=== PATIENT | female | born 2000 | race Two or more races ===

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

== ENCOUNTER 2018-01-28 12:36 | Emergency (ER) | payer MEDICAID ==
[~2018-01-28] VITALS: Ht 162.6 cm; Wt 49.9 kg
[2018-01-28 15:26] VITALS: BP 123/62
[2018-01-28 16:03] LABS: Urine Bacteria NONE SEEN /hpf (None Seen); Urine Blood 3+ /uL (Negative); Urine Mucus FEW (None Seen); Urine Specific Gravity 1.025 (1.001-1.035); Urine WBC 1 /hpf (0 - 5)
[2018-01-28] MEDS ORDERED: ACETAMINOPHEN 500 MG TAB PO ONE (16:15)
[2018-01-28] MEDS ORDERED: IBUPROFEN 600 MG TAB PO ONE (16:15)
== END 2018-01-28 17:19 | disposition home or self-care (01) ==
LOC: ER 12:39
DX: O46.8X1 Other antepartum hemorrhage, first trimester (principal); Z3A.01 Less than 8 weeks gestation of pregnancy
CPT/HCPCS: 36415; 76801; 76817; 81001; 84702

== ENCOUNTER 2018-01-30 14:26 | Emergency (ER) | payer MEDICAID ==
[~2018-01-30] VITALS: Ht 162.6 cm; Wt 49.9 kg
[2018-01-30 14:56] VITALS: BP 113/62
== END 2018-01-30 20:59 | disposition left against medical advice (07) ==
LOC: ER 14:36
DX: O46.8X9 Other antepartum hemorrhage, unspecified trimester (principal); Z53.21 Procedure and treatment not carried out due to patient leaving prior to being seen by health care provider

== ENCOUNTER → 2023-10-02 | Outpatient (CLI) | payer BC ==
[2023-10-02 12:29] LABS: Basophils # (auto) 0 10 ^3/uL (0-0.2); Basophils % (auto) 0.4 % (0.0-2.0); Eosinophils # (auto) 0.1 10 ^3/uL (0-0.8); Eosinophils % (auto) 0.9 % (0.0-7.0); Hemoglobin 13.4 g/dL (12.2-16.2); Lymphocytes # (auto) 1.5 10 ^3/uL (0.4-5.4); Lymphocytes % (auto) 17.3 % (10.0-50.0); Mean Corpuscular Hgb Conc. 33.6 g/dL (32.0-36.0); Mean Corpuscular Volume 86.3 fL (80.0-100.0); Monocytes # (auto) 0.8 10 ^3/uL (0-1.3); Neutrophils # (auto) 6.1 10 ^3/uL (1.6-8.6); Neutrophils % (auto) 72.4 % (37.0-80.0); Red Blood Cells 4.64 10^6/uL (4.0-5.20); Red Cell Distribution Width 13.6 % (11.8-14.3); White Blood Cell 8.4 10^3/uL (4.4-10.8)
[2023-10-02 13:02] LABS: Alanine Aminotransferase 15 U/L (7-40); Albumin 4.8 g/dL (3.2-4.8); Alkaline Phosphatase 47 U/L (46-116); Anion Gap 6 (5-15); Aspartate Aminotransferase 14 U/L (13-40); BUN/Creatinine Ratio 13.1 (10.0-20.0); Bilirubin, Total 0.6 mg/dL (0.2-1.0); Blood Urea Nitrogen 8 mg/dL (9-23); Calcium 10.2 mg/dL (8.5-10.1); Carbon Dioxide 23 mmol/L (20-30); Chloride 106 mmol/L (98-107); Cholesterol 153 mg/dL (< 200); Glucose 83 mg/dL (74-106); HDL Cholesterol 56 mg/dL (40-59); LDL Cholesterol 87 mg/dL (< 100); Potassium 3.9 mmol/L (3.5-5.1); Sodium 135 mmol/L (136-145); Total Protein 7.7 g/dL (5.7-8.2); Triglycerides 78 mg/dL (< 150)
[2023-10-02 13:03] LABS: Thyroid Stimulating Hormone 0.48 uIU/mL (0.55-4.78)
[2023-10-02 13:08] LABS: Amphetamine Screen, Urine Neg (NEGATIVE); Barbiturate Scree,Urine Neg (NEGATIVE); Benzodiazephine Screen, Urine Neg (NEGATIVE); Cannabinoid Screen, Urine Neg (NEGATIVE); Cocaine Screen, Urine Neg (NEGATIVE); Opiate Scree,Urine Neg (NEGATIVE); Phencyclidine Screen, Urine Neg (NEGATIVE)
[2023-10-02 13:10] LABS: Beta HCG, Quantitative 93055.5 mIU/mL (1.5-4.2)
[2023-10-03 07:08] LABS: Varicella Zoster IgG Antibody 345 index (Immune >165)
[2023-10-03 08:17] LABS: RPR Non Reactive (Non Reactive)
[2023-10-03 21:06] LABS: Chlamydia Trachomatis, NAA Negative (Negative); Neisseria gonorrhoeae, NAA Negative (Negative)
[2023-10-04 17:06] LABS: QuantiFERON-TB Gold Plus Negative (Negative)
== END | disposition home or self-care (01) ==
LOC: LAB 11:31
PROVIDERS: ATTEND Obstetrics & Gynecology
DX: Z34.80 Encounter for supervision of other normal pregnancy, unspecified trimester (principal); Z31.430 Encounter of female for testing for genetic disease carrier status for procreative management; N39.0 Urinary tract infection, site not specified; Z3A.00 Weeks of gestation of pregnancy not specified
CPT/HCPCS: 36415; 80053; 80061; 80307; 83036; 84439; 84443; 84702; 85025; 86592; 86703; 86762; 86787; 86850; 86900; 86901; 87086

== ENCOUNTER 2024-05-16 21:16 | Observation (INO) | payer BC ==
[~2024-05-16] VITALS: Ht 160 cm; Wt 70.3 kg
--- NOTE | 2024-05-17 07:13 | DVHDS2 ---
Physician Discharge Progress N Final Diagnosis: early labor Operations or Procedures: Operations or Procedures S: 24yo IUP@39.4wks presents to OB triage with c/o UCs q3 minutes, Denies LOF/VB/DEVINE/vision changes/RUQ pain. Endorses +FM. PNC with Dr. Stone, uncomplicated. Pt reports getting membrane sweep with OB today and was 2-3cm dilated. EFW in office 8lbs 4oz. O: VSS UA wnl NST reactive TOCO: q5-6 min SVE by RN: initially 3.5/50/-2, intact, vertex Pt ambulated for 1 hr then SVE recheck by RN was 3.5/60-70/-2. Pt wanted to ambulate for 1 more hour and SVE recheck unchanged. A: 24yo IUP@39.4wks Early labor P: D/C home [facility]/Labor precautions reviewed Do miles circuit, eat, shower, and rest at home. Condition on Discharge: Stable Disposition: Home Discharge Instructions: Diet: Regular Activity: No Restrictions, As Tolerated Medications: see med list Follow Up Care: Specialist: f/u with Dr. Stone Discharge Statement: "Patient was advised to return to the ER or call 911 if any headaches, dizziness, shortness of breath, chest pain, abdominal pain, bleeding, fevers, or worsening of medical condition. Patient was counseled about treatment plan, medications, possible side effects, patientverbalized understanding. All questions were answered to the best of my ability. This discharge took greater then 30 minutes in planning, reviewing documentation, counseling the patient, and discussing with other team members." CAROLYNN RESENDIZ CNM May 17, 2024 07:13
[2024-05-17] MEDS ORDERED: PREN-96 PO (14:03)
[2024-05-17] MEDS ORDERED: DOCU-94 PO ×2 (16:36)
[2024-05-17] MEDS ORDERED: IBU600T PO ×2 (16:36)
[2024-05-18] MEDS ORDERED: PREN-96 PO ×2 (00:30)
== END 2024-05-17 00:23 | disposition home or self-care (01) ==
LOC: LDRP 21:16
PROVIDERS: ADMIT Obstetrics & Gynecology; ATTEND Obstetrics & Gynecology
DX: O60.03 Preterm labor without delivery, third trimester (principal); Z3A.39 39 weeks gestation of pregnancy; Z79.899 Other long term (current) drug therapy
CPT/HCPCS: 59025; 81002; 82948; G0378

== ENCOUNTER 2024-05-17 02:18 | Inpatient (IN) | payer BC ==
[~2024-05-17] VITALS: Ht 160 cm; Wt 70.3 kg
[2024-05-17] MEDS ORDERED: LIDOCAINE 2%HCL (LOCAL ANESTH.) INJ 20ML MDV IJ PRN (02:45)
[2024-05-17] MEDS ORDERED: TERBUTALINE SULFATE 1 MG/ML 1ML VIAL SC PRN (02:45)
[2024-05-17 03:06] LABS: Basophils # (auto) 0 10 ^3/uL (0-0.2); Basophils % (auto) 0.3 % (0.0-2.0); Eosinophils # (auto) 0 10 ^3/uL (0-0.8); Eosinophils % (auto) 0.1 % (0.0-7.0); Hematocrit 40.8 % (36.0-46.0); Hemoglobin 13.7 g/dL (12.2-16.2); Lymphocytes # (auto) 1.1 10 ^3/uL (0.4-5.4); Lymphocytes % (auto) 7.7 % (10.0-50.0); Mean Corpuscular Hgb Conc. 33.5 g/dL (32.0-36.0); Mean Corpuscular Volume 89.5 fL (80.0-100.0); Monocytes # (auto) 0.8 10 ^3/uL (0-1.3); Monocytes % (auto) 5.5 % (0.0-12.0); Neutrophils # (auto) 12.2 10 ^3/uL (1.6-8.6); Neutrophils % (auto) 86.4 % (37.0-80.0); Platelet Count (auto) 166 10^3/uL (140-450); Red Blood Cells 4.55 10^6/uL (4.0-5.20); Red Cell Distribution Width 15.2 % (11.8-14.3); White Blood Cell 14.2 10^3/uL (4.4-10.8)
[2024-05-17 03:23] LABS: INR 0.95 (0.9-1.15); Partial Thromboplastin Time 30.7 SEC (24.5-34.5); Prothrombin Time 10.1 sec (9.3-11.8)
[2024-05-17 03:24] LABS: Alanine Aminotransferase 22 U/L (7-40); Albumin 4.1 g/dL (3.2-4.8); Alkaline Phosphatase 169 U/L (46-116); Anion Gap 8 (5-15); Aspartate Aminotransferase 23 U/L (13-40); BUN/Creatinine Ratio 14.1 (10.0-20.0); Bilirubin, Total 0.4 mg/dL (0.2-1.0); Blood Urea Nitrogen 9 mg/dL (9-23); Carbon Dioxide 20 mmol/L (20-31); Chloride 107 mmol/L (98-107); Glucose 114 mg/dL (74-106); Potassium 3.8 mmol/L (3.5-5.1); Sodium 135 mmol/L (136-145); Total Protein 6.9 g/dL (5.7-8.2)
[2024-05-17 04:03] LABS: Amphetamine Screen, Urine Neg (NEGATIVE); Barbiturate Scree,Urine Neg (NEGATIVE); Benzodiazephine Screen, Urine Neg (NEGATIVE); Cannabinoid Screen, Urine Neg (NEGATIVE); Cocaine Screen, Urine Neg (NEGATIVE); Phencyclidine Screen, Urine Neg (NEGATIVE)
[2024-05-17] MEDS ORDERED: ONDANSETRON HCL 4 MG/2 ML VIAL IV PRN (04:15)
[2024-05-17] MEDS: DERMOPLAST 60ML BOTTLE TOP PRN (04:18)
[2024-05-17] MEDS: PHISODERM TOP SOLN 240ML BTL TOP PRN (04:18)
[2024-05-17] MEDS: WITCH HAZEL-GLYCERIN PAD TOP PRN (04:18)
[2024-05-17] MEDS: NALBUPHINE HCL 10 MG/1ml INJECTION IV PRN (04:19)
[2024-05-17 04:20] LABS: Opiate Scree,Urine Neg (NEGATIVE)
[2024-05-17 05:02] LABS: Urine Blood 1+ /uL (Negative); Urine Clarity Clear (Clear); Urine Color Light-Yellow (Yellow); Urine Protein, UAD Negative (Negative); Urine Specific Gravity 1.014 (1.001-1.035); Urine Squamous Epithelial Cell FEW /hpf (<5); Urine Urobilinogen Normal (Negative); Urine WBC 1 /hpf (0 - 5); Urine pH 6.5 (5.0-9.0)
[2024-05-17] MEDS: LACTATED RINGER'S 1,000 ML IV SCH (06:23)
--- NOTE | 2024-05-17 07:13 | DVHHP2 ---
OB CC & HPI Date Date of Admission: May 17, 2024 Patient Identification: : 3 Para: 1 EDC: May 19, 2024 EGA: 39.5wks Chief Complaints: Reason for admission: other (labor) History of Present Complaints 24yo IUP@39.5wks presents to OB triage with c/o UCs q2-3 minutes, Denies LOF/VB/DEVINE/vision changes/RUQ pain. Endorses +FM. PNC with Dr. Stone, uncomplicated. Pt reports getting membrane sweep with OB on 05/16/24 and was 2-3cm dilated. GTT wnl, dating based on LMP c/w 6wk sono, GBS negative. OB hx: #1: SAB at 5wks #2: in 2019, 7lbs 7oz, uncomplicated Past Medical History Cardiac: No pertinent Hx Pulmonary: No pertinent Hx Central Nervous System: No pertinent Hx GI: No pertinent Hx Hemotology/Oncology: No pertinent Hx Hepatobiliary: No pertinent Hx Psychiatric: No pertinent Hx Musculoskeletal: No pertinent Hx Rheumotologic: No pertinent Hx Infectious Disease: No peritnent Hx ENT: No pertinent Hx Renal/: No pertinent Hx Endocrine: No pertinent Hx Dermatology: No pertinent Hx Past Surgical History: No pertinent Hx OB History OB History Care: Good Care Ultrasounds: Normal mid trimester US Obstetrical Complications: None Medical Complications: None Allergies: Coded Allergies: NO KNOWN ALLERGIES (Unverified , 11/28/16) Allergies NKDA Home Meds Reported Medications Vit W/ Ferrous Fumara ( One Daily) Daily Tab, 1 TAB PO DAILY, #90 TAB 3 Refills 05/17/24 Current Medications Current Medications Medications (Trade) Dose Ordered Sig/Hugo Route PRN Reason Start Time Stop Time Status Last Admin Lactated Ringer's 1,000 ml @ 125 mls/hr Q8H IV 05/17/24 02:45 05/17/24 06:23 Nalbuphine HCl (Nubain) 10 mg Q4HP PRN IV MODERATE PAIN (4-6 PAIN SCALE) 05/17/24 02:45 05/17/24 04:19 Witch Corinna (Tucks) 1 pad PRN PRN TOP PERINEAL AREA DISCOMFORT 05/17/24 02:45 05/17/24 04:18 Sodium Lauryl Sulfate (Phisoderm) 240 ml PRN PRN TOP PERINEAL AREA DISCOMFORT 05/17/24 02:45 05/17/24 04:18 Benzocaine (Dermoplast) 1 applic PRN PRN TOP PERINEAL AREA DISCOMFORT 05/17/24 02:45 05/17/24 04:18 Lidocaine HCl (Xylocaine) 40 ml ONCE PRN IJ PERINEAL AREA DISCOMFORT 05/17/24 02:45 Oxytocin 1,000 ml @ 6 ml/hr Q24H IV 05/17/24 02:45 Terbutaline Sulfate (Brethine Inj) 0.25 mg ONCE PRN SC Uterine tachysystole 05/17/24 02:45 Ondansetron HCl (Zofran) 4 mg Q4H PRN IV NAUSEA OR VOMITING 05/17/24 04:15 Family & Social History Family/Social History Past Family/Social History: denies Blood Type: O+ Rubella: immune RPR/VDRL: Negative GBS Status: Negative HBsAG: Negative Review of Systems Constitutional: No symptom reported Ears, Nose, & Throat: No symptom reported Eyes: No symptom reported Pulmonary/Respiratory: No symptom reported Cardiovascular: No symptom reported Gastrointestinal: No symptom reported Genitourinary: No symptom reported Musculoskeletal: No symptom reported Skin: No symptom reported Psychiatric: No symptom reported Endocrine: No symptom reported Hemotologic/Lymphatic: No symptom reported OB Admission Exam Physical Exam Vitals: Vital Signs Date Time Temp Pulse Resp B/P (MAP) Pulse Ox O2 Delivery O2 Flow Rate FiO2 05/17/24 05:19 96 16 121/69 HEENT: TMs Normal, Fontanelles Normal, Nasal Mucosa Normal, Eyes non-injected, Oropharynx Normal, PERRLA, Moist Membranes, EOMI Heart: Rhythm Normal Lungs: Clear Abdomen: Gravid Extremities: Normal Reflexes: Normal Pelvic Exam: SVE by RN: 4.5/70/-2, intact EFW in office on 05/16/24: 8lbs 4oz, vertex Membranes: Intact Heart Rate: 130's Accelerations: Accelerations Present Decelerations: No Decelerations Jail Variability: Average (6-25) Contractions on Admission: < 5 Minutes Apart Intensity: Moderate OB Plan Plan Admitting Diagnosis: Spontaneous Labor Plan: Expectant Management Other Plan: A: 24yo IUP@39.5wks Spontaneous Labor Category I EFM Intact Membranes GBS negative P: Admit to L&D Informed consent obtained Expectant management for now due to frequent UCs monitoring per order Routine labs ordered Pain mgmt PRN Frequent position changes in and out of bed encouraged Limit SVE unless necessary Intrauterine resuscitation PRN Anticipate CNM will consult with CAROLYNN Conley CNM May 17, 2024 07:13
--- NOTE | 2024-05-17 07:23 | DVHPN2 ---
Chief Complaints Patient reports: No new complaints Nursing reports: No new complaints Objective Vitals Vital Signs Date Time Temp Pulse Resp B/P (MAP) Pulse Ox O2 Delivery O2 Flow Rate FiO2 05/17/24 05:19 96 16 121/69 Medications Current Medications Medications (Trade) Dose Ordered Sig/Hugo Route PRN Reason Start Time Stop Time Status Last Admin Benzocaine (Dermoplast) 1 applic PRN PRN TOP PERINEAL AREA DISCOMFORT 05/17/24 02:45 05/17/24 04:18 Lactated Ringer's 1,000 ml @ 125 mls/hr Q8H IV 05/17/24 02:45 05/17/24 06:23 Lidocaine HCl (Xylocaine) 40 ml ONCE PRN IJ PERINEAL AREA DISCOMFORT 05/17/24 02:45 Nalbuphine HCl (Nubain) 10 mg Q4HP PRN IV MODERATE PAIN (4-6 PAIN SCALE) 05/17/24 02:45 05/17/24 04:19 Ondansetron HCl (Zofran) 4 mg Q4H PRN IV NAUSEA OR VOMITING 05/17/24 04:15 Oxytocin 1,000 ml @ 6 ml/hr Q24H IV 05/17/24 02:45 Sodium Lauryl Sulfate (Phisoderm) 240 ml PRN PRN TOP PERINEAL AREA DISCOMFORT 05/17/24 02:45 05/17/24 04:18 Terbutaline Sulfate (Brethine Inj) 0.25 mg ONCE PRN SC Uterine tachysystole 05/17/24 02:45 Witch Corinna (Tucks) 1 pad PRN PRN TOP PERINEAL AREA DISCOMFORT 05/17/24 02:45 05/17/24 04:18 Others ve-4.5cm/80/-1 Studies Laboratory Tests 05/17/24 02:50 Test 05/17/24 02:50 Range/Units Serum Glucose 114 H 74-106 mg/dL Ass/Plan Assessment labor Plan pt is refusing pitocin dr rizzo will cover this am for TONO Magana DO May 17, 2024 07:23
[2024-05-17] MEDS: ePHEDrine SULFATE 50 MG/ML AMP IV ONE (08:15)
[2024-05-17] MEDS: NALOXONE HCL 0.4 MG/ML VIAL IV ONE (08:15)
[2024-05-17] MEDS ORDERED: ROPIVACAINE HCL 200 ML ONE (08:34)
[2024-05-17] MEDS: LACT. RINGERS/OXYTOCIN 20UNITS 1,000 ML IV SCH (10:01)
[2024-05-17] MEDS: LACT. RINGERS/OXYTOCIN 20UNITS 500 ML IV ONE ×2 (13:33→13:45)
[2024-05-17] MEDS ORDERED: PREN-96 PO (14:03)
[2024-05-17] MEDS ORDERED: IBUPROFEN 600 MG TAB PO PRN (15:45)
[2024-05-17] MEDS ORDERED: DOCU-94 PO ×2 (16:36)
[2024-05-17] MEDS ORDERED: IBU600T PO ×2 (16:36)
[2024-05-17 19:00] VITALS: BP 123/67; PULSE 82; RESP 16; TEMP 98.4; O2SAT 97
[2024-05-17] MEDS ORDERED: DOCUSATE SOD 100 MG CAP PO PRN (20:00)
[2024-05-17 23:10] VITALS: BP 126/58; PULSE 86; RESP 18; TEMP 98.6; O2SAT 95
--- NOTE | 2024-05-18 00:06 | DVHPN2 ---
Progress Note Date Seen: May 18, 2024 Subjective S: bleeding is less, eating food without issues, denies lightheaded/dizziness, pain well controlled with oral medications, no concerns with urinating, passing flatus, no BM yet, ambulating well, vital signs Vital Sign Date Time Temp Pulse Resp B/P (MAP) Pulse Ox O2 Delivery O2 Flow Rate FiO2 05/17/24 19:00 98.4 82 16 123/67 (85) 97 98.4 05/17/24 19:00 Room Air medications Current Medications Medications Dose Ordered Sig/Hugo Route Start Time Stop Time Status Last Admin Dose Admin Sherman Corinna 1 pad PRN PRN TOP 05/17/24 02:45 05/17/24 04:18 1 PAD Sodium Lauryl Sulfate 240 ml PRN PRN TOP 05/17/24 02:45 05/17/24 04:18 240 ML Benzocaine 1 applic PRN PRN TOP 05/17/24 02:45 05/17/24 04:18 1 APPLIC Lidocaine HCl 40 ml ONCE PRN IJ 05/17/24 02:45 Cancel Terbutaline Sulfate 0.25 mg ONCE PRN SC 05/17/24 02:45 Cancel Ondansetron HCl 4 mg Q4H PRN IV 05/17/24 04:15 Cancel Ibuprofen 600 mg Q6HP PRN PO 05/17/24 15:45 Acetaminophen 650 mg Q4HP PRN PO 05/17/24 15:45 Docusate Sodium 200 mg DAILYPRN PRN PO 05/17/24 20:00 laboratory and microbiology Laboratory Tests 05/17/24 02:50 Test 05/17/24 02:50 Range/Units Serum Glucose 114 H 74-106 mg/dL Objective O: VSS Chest: heart sounds normal and lung sounds clear bilaterally Abd: soft, non-tender, fundus at U/firm/midline, active bowel sounds, no rebound or guarding Perineum: sutures intact, edges well approximated, no erythema/edema noted Ext: Non-tender, No edema, 2+ BLE DTRs Lochia: minimal See lab results Problems(with codes): (1) (normal spontaneous vaginal delivery) (2) Periurethral laceration, delivered, current hospitalization Assessment/Plan A: 24yo now PPD#1 s/p Rh+ Rubella Immune Pain control with PO medications Bowel regimen P: D/C home today Rx sent to pharmacy precautions and preeclampsia warning signs reviewed F/U with [facility] office in 2 weeks Plan discussed with: Patient CAROLYNN RESENDIZ CNM May 18, 2024 00:06
--- NOTE | 2024-05-18 00:07 | DVHDS2 ---
Obstetrics Discharge Summary Obstetrics Discharge Summary Date of Admission: May 17, 2024 Date of Discharge: May 18, 2024 Reason For Admission: Onset of Labor Procedures: NST Intrapartum Procedures: Spontaneous vaginal deliv Procedures: Hct/date: (05/18/24), Hgb/date: (05/18/24) Operative Complicat: Laceration (periurethral) Discharge Diagnosis: Term -Delivered Discharge Information: Activity (as tolerated, no heavy lifting and nothing in the vagina for 6 weeks), Diet (Routine), Medications (Rx sent), Instructions (Routine), Discharge to (Home), Accompanied by (partner), Discarge date (05/18/24) CAROLYNN RESENDIZ CNM May 18, 2024 00:07
[2024-05-18] MEDS ORDERED: PREN-96 PO ×2 (00:30)
[2024-05-18 03:25] VITALS: BP 101/57; PULSE 84; RESP 16; TEMP 98.1; O2SAT 96
[2024-05-18] MEDS: ACETAMINOPHEN 325 MG TAB PO PRN (03:42)
[2024-05-18 07:00] VITALS: BP 132/66; PULSE 85; RESP 14; TEMP 98.4; O2SAT 97
[2024-05-18 07:06] LABS: RPR Non Reactive (Non Reactive)
[2024-05-18 07:46] LABS: Basophils # (auto) 0 10 ^3/uL (0-0.2); Basophils % (auto) 0.2 % (0.0-2.0); Eosinophils # (auto) 0.1 10 ^3/uL (0-0.8); Eosinophils % (auto) 0.6 % (0.0-7.0); Hematocrit 41.5 % (36.0-46.0); Hemoglobin 14.2 g/dL (12.2-16.2); Lymphocytes % (auto) 14.1 % (10.0-50.0); Mean Corpuscular Hemoglobin 30.7 pg (28.0-32.0); Mean Corpuscular Hgb Conc. 34.2 g/dL (32.0-36.0); Mean Corpuscular Volume 89.8 fL (80.0-100.0); Monocytes # (auto) 0.9 10 ^3/uL (0-1.3); Neutrophils # (auto) 11.3 10 ^3/uL (1.6-8.6); Neutrophils % (auto) 79.1 % (37.0-80.0); Platelet Count (auto) 169 10^3/uL (140-450); Red Blood Cells 4.62 10^6/uL (4.0-5.20); White Blood Cell 14.3 10^3/uL (4.4-10.8)
[2024-05-18 11:00] VITALS: BP 109/59; PULSE 78; RESP 15; TEMP 97.6; O2SAT 97
[2024-05-18 14:00] VITALS: TEMP 36.4
--- NOTE | 2024-05-18 14:23 | DVHOP ---
DATE OF SURGERY: 05/18/2024 DELIVERY NOTE This is a 3, para 3 now with EDC 05/19 admitted in labor. The patient had a spontaneous vaginal delivery of baby boy with Apgars 8 and 9, weight of 8 pounds 1 ounces. She also had a first-degree perineal repair. Estimated blood loss was noted to be 300 mL. The patient did well, no complications. DO LAURA Mckinley TID: [id number] RECEIPT: [id number]
--- NOTE | 2024-05-19 09:30 | LDN2 ---
Labor and Delivery Note Date 05/19/24 Age 24 3 Para 3 EDC 1-5 EGA 39WKS Diagnosis LABOR, Vaginal Delivery: VTX Vacuum Assisted: Yes Placenta: Spontaneous Sex: Male Apgars 8-9 Nuchal Cord Transected: No Amniotic Fluid: Clear Episiotomy: No Extension: Yes (1ST DEG PERINEAL LAC ) Repaired with 2-0 CHROMIC EBL 300ML Labs Laboratory Tests 05/17/24 02:50: Hepatitis B Surface Antigen Negative 10/02/23 11:47: HIV (1&2) Antibody Negative, Rubella Antibody Positive Blood Bank 05/17/24 02:50: Blood Type O POSITIVE Complications NONE Conditions STABLE Comments/Significant Med Lia SPECE XAM NO CXAL LAC VACCUM APPLIED DUE TO HEART DECL AND POOR PUSHING EFFORT . PT WAS ASKED PERMISSION TO APPLY VACCUM TO WHICH SHE AGREED .ONE APPLICATION OF VACCUM WAS SUCCESSFULLY APPLIED TONO JARVIS DO May 19, 2024 09:30
[2024-05-20 12:06] LABS: Treponema Pallidum Ab LC Non Reactive (Non Reactive)
== END 2024-05-18 14:40 | disposition home or self-care (01) | DRG 807 ==
LOC: LDRP 02:18 → OBSVTOIN 02:36 → LDRP 02:37
PROVIDERS: ADMIT Obstetrics & Gynecology; ATTEND Obstetrics & Gynecology
PROC: 10D07Z6 Extraction of Products of Conception, Vacuum, Via Natural or Artificial Opening (ICD-10-PCS; principal; 2023-05-17)
PROC: 0HQ9XZZ Repair Perineum Skin, External Approach (ICD-10-PCS; 2023-05-17)
DX: O70.0 First degree perineal laceration during delivery (principal); Z37.0 Single live birth; Z3A.39 39 weeks gestation of pregnancy
CPT/HCPCS: 36415; 59025; 59409; 62282; 80053; 80307; 81001; 81002; 85025; 85610; 85730; 86592; 86780; 86850; 86900; 86901; 87340; 94760; 94762; 96360; 96361; 96365; 96366; 96374; G0378; J2405; J2590